=== PATIENT | female | born 1995 | race Caucasian/White ===

== ENCOUNTER 2021-08-29 07:50 | Emergency (ER) | payer OTHER ==
[~2021-08-29] VITALS: Ht 165.1 cm; Wt 49.9 kg
[~2021-08-29 07:50] MED LIST: ACID REDUCER20 M1 PO; ALLEGRA ALLERG180 MG PO; BENTYL10 MG PO; CARAFATE1 GM PO; QUESTRAN PACKET4 GM PO; ZOFRAN4 MG PO
[2021-08-29 08:18] LABS: BILIRUBIN NEGATIVE (NEGATIVE); BLOOD 3+ Ery/uL (NEGATIVE); CLARITY CLEAR (CLEAR); COLOR YELLOW (YELLOW); GLUCOSE (U) NORMAL (NORMAL); LEUKOCYTES NEGATIVE Leu/uL (NEGATIVE); NITRITE NEGATIVE (NEGATIVE); PROTEIN NEGATIVE (NEGATIVE); SPECIFIC GRAVITY >=1.030 (1.001-1.030); UROBILINOGEN 0.2 mg/dL (0.2-1.0)
[2021-08-29 08:24] LABS: BACTERIA TRACE; MUCOUS LARGE; SQUAMOUS EPITHELIAL CELLS 20-50; URINARY RBC RARE
[2021-08-29 08:25] LABS: BASOPHIL 0.6 % (0-2); EOSINOPHIL 2.1 % (0-5); HCT 44.7 % (37.0-47.0); HGB 14.7 g/dl (12.5-16.0); LYMPHOCYTE 38.1 % (15-48); MCH 31.3 pg (25.0-31.0); MCHC 32.9 g/dL (32.0-36.0); MCV 95.1 fL (78.0-100.0); MONOCYTE 16.2 % (0-12); NEUTROPHIL 42.7 % (41-80); NRBC 0; PLT 207 K/uL (150-400); WBC 3.4 K/uL (4.0-10.5)
[2021-08-29 08:48] LABS: BILIRUBIN - TOTAL 0.2 mg/dL (0.2-1.0); BUN/CREAT RATIO (CALC) 17.2 RATIO; CREATININE 0.64 mg/dL (0.51-0.95); GLOBULIN (CALCULATION) 3.1 g/dL; POTASSIUM 3.9 mmol/L (3.5-5.1); TOTAL PROTEIN 7.1 g/dL (6.4-8.2)
[2021-08-29 10:50] LABS: CORONAVIRUS 2019 SARS-COV-2 NEGATIVE (NEGATIVE); INFLUENZA A NAA NEGATIVE (NEGATIVE)
[2021-08-29] MEDS ORDERED: NORCO 5-325 TA1 EACH PO (11:41)
[2021-08-29] MEDS ORDERED: DIFICID200 MG PO (11:41)
[2021-08-29] MEDS ORDERED: ONDANSETRON ODT4 MG SL (11:41)
== END 2021-08-29 12:00 | disposition home or self-care (01) ==
LOC: FER 07:50
PROVIDERS: Emergency Medicine Emergency Medical Services
DX: A04.72 Enterocolitis due to Clostridium difficile, not specified as recurrent (principal); Z20.822 Contact with and (suspected) exposure to COVID-19
CPT/HCPCS: 36415; 80053; 81001; 83605; 83690; 85025; J2270; J2405; J7120; Q9967; U0002